=== PATIENT | male | born 1995 | race African-American/Black ===

== ENCOUNTER 2017-07-07 10:20 | Emergency (ER) | payer SELFPAY ==
[~2017-07-07] VITALS: Ht 180.3 cm; Wt 90.0 kg
[2017-07-07 10:21] VITALS: BP 125/93
[2017-07-07] MEDS ORDERED: LIDOCAINE HCL 1%/EPI 1:200,000 30 ML VIAL MC ONE (12:15)
== END 2017-07-07 13:02 | disposition left against medical advice (07) ==
LOC: ER 10:28
DX: S01.81XA Laceration without foreign body of other part of head, initial encounter (principal); Y08.89XA Assault by other specified means, initial encounter; Y93.89 Activity, other specified; Y92.89 Other specified places as the place of occurrence of the external cause; Y99.8 Other external cause status
CPT/HCPCS: 12011; 99283; X7700; Z7610